=== PATIENT | male | born 1990 | race Caucasian/White ===

== ENCOUNTER 2024-04-23 08:01 | Emergency (ER) | payer OTHER ==
[2024-04-23 08:12] VITALS: RESP 18; BMI 37.6
[2024-04-23] MEDS ORDERED: ACETAMINOPHEN 500 MG TABLET (FP) ONE (09:20)
[2024-04-23] MEDS: ACETAMINOPHEN 500 MG TABLET (FP) PO ONE (09:33)
[2024-04-23] MEDS ORDERED: AZITHROMYCIN 500 MG TABLET ONE (09:53)
[2024-04-23] MEDS: AZITHROMYCIN 250 MG TABLET PO ONE (09:55)
[2024-04-23 10:04] VITALS: BP 101/60; PULSE 94; TEMP 99
== END 2024-04-23 10:21 | disposition home or self-care (01) ==
LOC: JERFT 08:01
DX: R50.9 Fever, unspecified (principal); J06.9 Acute upper respiratory infection, unspecified; R05.9 Cough, unspecified; R09.81 Nasal congestion; J10.1 Influenza due to other identified influenza virus with other respiratory manifestations; Z20.822 Contact with and (suspected) exposure to COVID-19
CPT/HCPCS: 0241U-QW; 71046-TC-FY; 99284-25